=== PATIENT | female | born 1955 | race Caucasian/White ===

== ENCOUNTER 2024-09-17 00:52 | Inpatient (IN) | payer MEDICARE ==
[~2024-09-17] VITALS: Ht 142.2 cm; Wt 51.3 kg
[2024-09-17] MEDS: VANCOMYCIN IV 1,000 MG in IV DEXTROSE 5% 250 ML IV ONE (01:30)
[2024-09-17 01:58] LABS: ABG BASE EXCESS -6.4 mmol/L (-2.0-3.0); ABG HCO3 16.9 mmol/L (21.0-28.0); ABG PCO2 26.8 mmHg (32.0-45.0); ABG PH 7.417 (7.350-7.450); ABG PO2 54.1 mmHg (83.0-108.0); ABG SITE RIGHT BRACHIAL; ABG TOTAL HEMOGLOBIN 10.5 G/dL (12.0-16.0); AaDO2 89.3 mmHg; COHb 0.9 % (0.5-1.5); MetHb 0.3 % (0.0-1.5); O2Hb 86.5 % (94.0-98.0)
[2024-09-17 01:59] LABS: BASOPHILS # (AUTO) 0.1 K/UL (0.0-0.2); BASOPHILS % (AUTO) 0.8 % (0.0-2.0); EOSINOPHILS # (AUTO) 0.1 K/uL (0.0-0.7); EOSINOPHILS % (AUTO) 0.6 % (0.0-7.0); HEMATOCRIT 29.5 % (31.2-41.9); HEMOGLOBIN 9.7 g/dL (10.9-14.3); LYMPHOCYTES # (AUTO) 1.3 K/uL (0.8-4.8); LYMPHOCYTES % (AUTO) 13.2 % (20.5-51.5); MEAN CORPUSCULAR HEMOGLOBIN 29.7 uug (24.7-32.8); MEAN CORPUSCULAR HGB CONC 33 g/dL (32.3-35.6); MEAN CORPUSCULAR VOLUME 90.4 fL (75.5-95.3); MONOCYTES # (AUTO) 0.9 K/uL (0.1-1.30); MONOCYTES % (AUTO) 9.6 % (0.0-11.0); NEUTROPHILS # (AUTO) 7.2 K/uL (1.8-8.9); NEUTROPHILS % (AUTO) 75.8 % (38.5-71.5); PLATELET COUNT (AUTO) 151 K/uL (179-408); RED BLOOD CELL COUNT(AUTO) 3.26 MIL/uL (3.63-4.92); RED CELL DISTRIBUTION WIDTH 16.1 % (12.3-17.7); WHITE BLOOD COUNT (AUTO) 9.5 K/uL (3.8-11.8)
[2024-09-17 02:21] LABS: ALANINE AMINOTRANSFERASE 32 U/L (14-59); ALKALINE PHOSPHATASE 450 U/L (50-136); ASPARTATE AMINOTRANSFERASE 26 U/L (15-37); BILIRUBIN,DIRECT 0.5 mg/dL (0.0-0.2); CALCIUM 9.1 mg/dL (8.5-10.1); CARBON DIOXIDE 22 mmol/L (21-32); CHLORIDE 102 mmol/L (98-107); GLUCOSE 228 mg/dL (74-106); NT-PRO BNP 46527 pg/mL (0-125); POTASSIUM 6.2 mmol/L (3.5-5.1); SODIUM SERUM 136 mmol/L (136-145); TOTAL PROTEIN, SERUM 6.7 g/dL (6.4-8.2)
[2024-09-17 02:27] LABS: UREA NITROGEN, BLOOD 87 mg/dL (7-18)
[2024-09-17 02:28] LABS: CREATININE 9.2 mg/dL (0.6-1.3)
[2024-09-17] MEDS ORDERED: ALBUTEROL SULFATE 2.5 MG/3 ML NEBU ONE (03:37)
[2024-09-17] MEDS ORDERED: DEXTROSE 50% 50 ML DISP.SYRIN ONE ×2 (03:38→06:05)
[2024-09-17] MEDS ORDERED: VANCOMYCIN IV 200 ML ONE (03:38)
[2024-09-17] MEDS ORDERED: INSULIN REGULAR, HUMAN 1000 UNIT/10 ML VIAL ONE (03:39)
[2024-09-17] MEDS ORDERED: levoFLOXacin 250MG /D5W 50 ML IV ONE (03:39)
[2024-09-17] MEDS: INSULIN REGULAR, HUMAN 1000 UNIT/10 ML VIAL IV ONE (03:50)
[2024-09-17] MEDS: DEXTROSE 50% 50 ML DISP.SYRIN IV ONE ×2 (03:55→06:33)
[2024-09-17] MEDS: ALBUTEROL SULFATE 2.5 MG/3 ML NEBU NEB ONE (03:58)
[2024-09-17] MEDS ORDERED: ONDANSETRON 4 MG/2 ML VIAL IV PRN (04:45)
[2024-09-17] MEDS ORDERED: REMEDY ESSENTIAL ZINC PASTE 113 GM TP PRN (04:45)
[2024-09-17] MEDS ORDERED: ALBUTEROL SULFATE 2.5 MG/3 ML NEBU NEB PRN (04:45)
[2024-09-17] MEDS: PANTOPRAZOLE SODIUM 40 MG TABLET.DR PO SCH (07:13)
[2024-09-17 07:26] LABS: BASOPHILS # (AUTO) 0.1 K/UL (0.0-0.2); BASOPHILS % (AUTO) 0.6 % (0.0-2.0); EOSINOPHILS # (AUTO) 0.1 K/uL (0.0-0.7); EOSINOPHILS % (AUTO) 0.7 % (0.0-7.0); HEMATOCRIT 28.7 % (31.2-41.9); HEMOGLOBIN 9.6 g/dL (10.9-14.3); LYMPHOCYTES # (AUTO) 1.1 K/uL (0.8-4.8); LYMPHOCYTES % (AUTO) 13.6 % (20.5-51.5); MEAN CORPUSCULAR HEMOGLOBIN 30.2 uug (24.7-32.8); MEAN CORPUSCULAR HGB CONC 33 g/dL (32.3-35.6); MEAN CORPUSCULAR VOLUME 90.7 fL (75.5-95.3); MONOCYTES # (AUTO) 0.9 K/uL (0.1-1.30); NEUTROPHILS # (AUTO) 6.1 K/uL (1.8-8.9); NEUTROPHILS % (AUTO) 74.1 % (38.5-71.5); PLATELET COUNT (AUTO) 177 K/uL (179-408); RED BLOOD CELL COUNT(AUTO) 3.17 MIL/uL (3.63-4.92); RED CELL DISTRIBUTION WIDTH 16.2 % (12.3-17.7); WHITE BLOOD COUNT (AUTO) 8.2 K/uL (3.8-11.8)
[2024-09-17 07:38] LABS: DIFFERENTIAL COMMENT 1
[2024-09-17 07:56] LABS: CALCIUM 9.4 mg/dL (8.5-10.1); MAGNESIUM 2.8 mg/dL (1.8-2.4); PHOSPHOROUS 3.9 mg/dL (2.5-4.9); POTASSIUM 5.7 mmol/L (3.5-5.1)
[2024-09-17] MEDS ORDERED: PANTOPRAZOLE SODIUM 40 MG TABLET.DR PO ONE (08:13)
[2024-09-17 08:17] LABS: CREATININE 9.9 mg/dL (0.6-1.3)
[2024-09-17 09:15] VITALS: BP 118/49; TEMP 98.8; O2SAT 94
[2024-09-17 11:36] VITALS: BP 126/54; TEMP 98.8; O2SAT 92
[2024-09-17] MEDS ORDERED: ASPI81TA31 PO (12:35)
[2024-09-17] MEDS ORDERED: SEVE800T7 PO (12:35)
[2024-09-17] MEDS ORDERED: AMLO-212 PO (12:36)
[2024-09-17] MEDS ORDERED: LABE100T5 PO (12:41)
[2024-09-17] MEDS ORDERED: HYDR-894 PO (12:45)
[2024-09-17] MEDS ORDERED: ROSU20TA2 PO (12:46)
[2024-09-17] MEDS ORDERED: OMEP20CA15 PO (12:48)
[2024-09-17 14:30] VITALS: BP 113/50; O2SAT 95
[2024-09-17 15:37] VITALS: BP 123/62; TEMP 99.2; O2SAT 99
[2024-09-17] MEDS: PHENYLEPHRINE/SHARK LIVER/CCB 1 EACH SUPP.RECT RC PRN (17:35)
[2024-09-17 20:00] VITALS: BP 147/63; TEMP 99
[2024-09-17] MEDS: levoFLOXacin 500 MG/D5W 500 MG in PREMIXED 1 EACH IV SCH (21:08)
[2024-09-18 00:30] VITALS: BP 141/57; TEMP 103; O2SAT 92
[2024-09-18] MEDS: ACETAMINOPHEN 325 MG TABLET PO PRN (00:30)
[2024-09-18 04:00] VITALS: BP 125/53; TEMP 98.7
[2024-09-18] MEDS: PANTOPRAZOLE SODIUM 40 MG TABLET.DR PO SCH (06:09)
[2024-09-18 06:10] LABS: HEPATITIS B SURFACE AB, QUAL Non Reactive (.); HEPATITIS B SURFACE AG Negative (Negative)
[2024-09-18 07:10] LABS: BASOPHILS % (AUTO) 0.4 % (0.0-2.0); DIFFERENTIAL COMMENT 0; EOSINOPHILS # (AUTO) 0.1 K/uL (0.0-0.7); EOSINOPHILS % (AUTO) 1.2 % (0.0-7.0); HEMATOCRIT 31.6 % (31.2-41.9); HEMOGLOBIN 10.3 g/dL (10.9-14.3); LYMPHOCYTES # (AUTO) 1.1 K/uL (0.8-4.8); LYMPHOCYTES % (AUTO) 18.6 % (20.5-51.5); MEAN CORPUSCULAR HEMOGLOBIN 29.2 uug (24.7-32.8); MEAN CORPUSCULAR HGB CONC 33 g/dL (32.3-35.6); MEAN CORPUSCULAR VOLUME 89.6 fL (75.5-95.3); MONOCYTES # (AUTO) 0.8 K/uL (0.1-1.30); MONOCYTES % (AUTO) 13.1 % (0.0-11.0); NEUTROPHILS % (AUTO) 66.7 % (38.5-71.5); PLATELET COUNT (AUTO) 175 K/uL (179-408); RED BLOOD CELL COUNT(AUTO) 3.53 MIL/uL (3.63-4.92); RED CELL DISTRIBUTION WIDTH 16.6 % (12.3-17.7)
[2024-09-18 07:13] LABS: CALCIUM 9.3 mg/dL (8.5-10.1); CREATININE 6.1 mg/dL (0.6-1.3); MAGNESIUM 2.3 mg/dL (1.8-2.4); PHOSPHOROUS 4.9 mg/dL (2.5-4.9); POTASSIUM 4.8 mmol/L (3.5-5.1)
[2024-09-18] MEDS ORDERED: Medication Not On Formulary EA (Omeprazole 20 MG) PO SCH (07:30)
[2024-09-18 07:48] VITALS: BP 132/51; TEMP 99; O2SAT 94
[2024-09-18] MEDS: SEVELAMER CARBONATE 800 MG TABLET PO SCH (08:38)
[2024-09-18] MEDS: hydrALAZINE HCL 25 MG TABLET PO SCH (08:39)
[2024-09-18] MEDS: ASPIRIN 81 MG TAB.CHEW PO SCH (08:40)
[2024-09-18] MEDS: AMLODIPINE 5 MG TABLET PO SCH (08:40)
[2024-09-18] MEDS: LABETALOL HCL 100 MG TABLET PO SCH (08:41)
[2024-09-18 12:04] VITALS: BP 121/61; TEMP 98.6; O2SAT 95
[2024-09-18 12:57] VITALS: O2SAT 95
[2024-09-18 15:48] VITALS: BP 106/46; TEMP 98.7; O2SAT 94
[2024-09-19] VITALS (7 sets, daily range): BP systolic 118–134; BP diastolic 47–59; TEMP 97.6–99; O2SAT 95–99
[2024-09-19 06:48] LABS: BASOPHILS % (AUTO) 0.5 % (0.0-2.0); EOSINOPHILS # (AUTO) 0.2 K/uL (0.0-0.7); EOSINOPHILS % (AUTO) 4.4 % (0.0-7.0); HEMATOCRIT 28.1 % (31.2-41.9); HEMOGLOBIN 9.5 g/dL (10.9-14.3); MEAN CORPUSCULAR HGB CONC 34 g/dL (32.3-35.6); MONOCYTES # (AUTO) 0.6 K/uL (0.1-1.30); NEUTROPHILS % (AUTO) 63.1 % (38.5-71.5); PLATELET COUNT (AUTO) 159 K/uL (179-408); RED BLOOD CELL COUNT(AUTO) 3.16 MIL/uL (3.63-4.92); RED CELL DISTRIBUTION WIDTH 16.2 % (12.3-17.7); WHITE BLOOD COUNT (AUTO) 4.7 K/uL (3.8-11.8)
[2024-09-19 07:02] LABS: DIFFERENTIAL COMMENT 1
[2024-09-19 07:03] LABS: POTASSIUM 4.9 mmol/L (3.5-5.1)
[2024-09-19 07:08] LABS: CREATININE 7.9 mg/dL (0.6-1.3)
[2024-09-20] VITALS (7 sets, daily range): BP systolic 97–153; BP diastolic 51–87; TEMP 97–99.3; O2SAT 96–99
[2024-09-20 06:49] LABS: BASOPHILS % (AUTO) 0.2 % (0.0-2.0); EOSINOPHILS # (AUTO) 0.2 K/uL (0.0-0.7); EOSINOPHILS % (AUTO) 4.3 % (0.0-7.0); HEMATOCRIT 27.1 % (31.2-41.9); HEMOGLOBIN 9.2 g/dL (10.9-14.3); LYMPHOCYTES % (AUTO) 25.8 % (20.5-51.5); MEAN CORPUSCULAR HGB CONC 34 g/dL (32.3-35.6); MONOCYTES # (AUTO) 0.6 K/uL (0.1-1.30); MONOCYTES % (AUTO) 14.7 % (0.0-11.0); NEUTROPHILS # (AUTO) 2.1 K/uL (1.8-8.9); PLATELET COUNT (AUTO) 152 K/uL (179-408); RED BLOOD CELL COUNT(AUTO) 3.08 MIL/uL (3.63-4.92); WHITE BLOOD COUNT (AUTO) 3.8 K/uL (3.8-11.8)
[2024-09-20 06:51] LABS: CALCIUM 8.8 mg/dL (8.5-10.1); CREATININE 4.9 mg/dL (0.6-1.3); POTASSIUM 4.1 mmol/L (3.5-5.1)
[2024-09-20 06:56] LABS: DIFFERENTIAL COMMENT 1
[2024-09-20] MEDS ORDERED: LEVO500T90 PO (14:04)
[2024-09-22 21:06] LABS: ADENOVIRUS Not Detected (Not Detected); CORONAVIRUS 229E Not Detected (Not Detected); CORONAVIRUS HKU1 Not Detected (Not Detected); CORONAVIRUS NL63 Not Detected (Not Detected); CORONAVIRUS OC43 Not Detected (Not Detected); NP BORDETELLA PERTUSIS Not Detected (Not Detected); NP CHLAMYDOPHILA PNEUMONIAE Not Detected (Not Detected); NP HUMAN METAPNEUMOVIRUS Not Detected (Not Detected); NP HUMAN RHINO/ENTERO VIRUS Not Detected (Not Detected); NP INFLUENZA A Detected (Not Detected); NP INFLUENZA A/H1 Not Detected (Not Detected); NP INFLUENZA A/H1-2009 Not Detected (Not Detected); NP INFLUENZA A/H3 Detected (Not Detected); NP INFLUENZA B Not Detected (Not Detected); NP MYCOPLASMA PNEUMONIAE Not Detected (Not Detected); NP PARAINFLUENZA 1 Not Detected (Not Detected); NP PARAINFLUENZA 2 Not Detected (Not Detected); NP PARAINFLUENZA 3 Not Detected (Not Detected); NP PARAINFLUENZA 4 Not Detected (Not Detected); NP RESPIRATORY SYNCYTIAL VIRUS Not Detected (Not Detected)
== END 2024-09-20 17:00 | disposition home or self-care (01) | DRG 871 ==
LOC: ER 00:57 → TELE3 07:54
PROVIDERS: ADMIT Nurse Practitioner Family; ATTEND Internal Medicine
PROC: 5A1D70Z Performance of Urinary Filtration, Intermittent, Less than 6 Hours Per Day (ICD-10-PCS; principal; 2024-09-17)
DX: A41.9 Sepsis, unspecified organism (principal); I21.A1 Myocardial infarction type 2; I50.23 Acute on chronic systolic (congestive) heart failure; J15.69 Pneumonia due to other Gram-negative bacteria; N18.6 End stage renal disease; E87.1 Hypo-osmolality and hyponatremia; E44.0 Moderate protein-calorie malnutrition; Z99.2 Dependence on renal dialysis; E87.5 Hyperkalemia; R09.02 Hypoxemia; E78.5 Hyperlipidemia, unspecified
CPT/HCPCS: 36415; 36600; 71045; 82803; 83605; 83735; 84100; 84484; 85025; 85730; 86706; 87040; 87340; 90937; 93307; 94760; G0378; J1815; J1956; J3370; J3490; J7040